=== PATIENT | male | born 1935 | race Caucasian/White ===

== ENCOUNTER 2017-12-03 23:16 | Observation (INO) | payer OTHER ==
[~2017-12-03] VITALS: Ht 182.9 cm; Wt 73.6 kg
[2017-12-03 23:53] LABS: HEMATOCRIT 31.2 % (38.0-50.0); HEMOGLOBIN 10.8 G/DL (12.5-16.6); MCH 33.6 PG (29.0-34.0); MCHC 34.6 G/DL (30.0-36.0); MCV 97.2 FL (86-99); PLATELET COUNT 180 K/uL (156-360); RBC DIS.WIDTH-CV 13.5 % (11.8-14.6); RBC DIS.WIDTH-SD 48.6 % (39-53); RED BLOOD COUNT 3.21 M/uL (4.00-5.50); WHITE BLOOD COUNT 8.3 K/uL (4.1-10.2)
[2017-12-04 00:02] LABS: ALBUMIN 3.5 g/dL (3.2-4.8)
[2017-12-04 00:03] LABS: CHLORIDE 108 mEq/L (99-109); POTASSIUM 3.8 mEq/L (3.7-5.4); SODIUM 137 mEq/L (136-147)
[2017-12-04 00:05] LABS: GLUCOSE 115 mg/dL (70-99); TOTAL PROTEIN 6.3 g/dL (6.4-8.3)
[2017-12-04 00:07] LABS: TOTAL BILIRUBIN 0.6 mg/dL (0.0-1.0)
[2017-12-04 00:08] LABS: ALKALINE PHOSPHATASE 45 IU/L (3-129); CREATININE 1.4 mg/dL (0.6-1.3)
[2017-12-04 00:09] LABS: GFR ESTIMATE (CALCULATED) 51 mL/min/ (58.99-99999); UREA NITROGEN (BUN) 44 mg/dL (9-23)
[2017-12-04 00:10] LABS: AST (GOT) 16 IU/L (2-34)
[2017-12-04 00:11] LABS: ALT (GPT) 9 IU/L (3-49)
[2017-12-04 00:12] LABS: LIPASE 13 U/L (1.0-51.0)
[2017-12-04 00:13] LABS: TROP-I INTERPRETATION NEGATIVE; TROPONIN-I < 0.01 ng/mL (0.0-0.30)
[2017-12-04 03:20] LABS: APPEARANCE SL.HAZY ((CLEAR)); BILIRUBIN NEGATIVE; BLOOD SMALL; COLOR YELLOW ((YELLOW)); GLUCOSE (STRIP) NEGATIVE; KETONES 20; LEUKOCYTES LARGE; NITRITE NEGATIVE; PROTEIN (STRIP) 30; SPECIFIC GRAVITY 1.019 (1.000-1.030); UROBILINOGEN 0.2 MG/DL (0.2-1.0)
[2017-12-04 03:24] LABS: BACTERIA RARE /HPF; EPITHELIAL CELLS NONE SEEN /HPF; HYALINE CASTS 0-5 /LPF; MUCUS TRACE /LPF; UCUL ADDED? YES; WHITE BLOOD CELLS TNTC /HPF (0-5)
[2017-12-04 03:49] VITALS: BP 133/75
[2017-12-04 07:46] VITALS: BP 124/66
[2017-12-04 11:07] LABS: CHLORIDE 106 MEQ/L (99-109); CREATININE 1.1 MG/DL (0.6-1.3); GFR ESTIMATE (CALCULATED) > 59 mL/min/ (58.99-99999); GLUCOSE 105 mg/dL (70-99); POTASSIUM 3.9 MEQ/L (3.7-5.4); SODIUM 139 MEQ/L (136-147); UREA NITROGEN (BUN) 32 mg/dL (9-23)
[2017-12-04] MEDS ORDERED: TYLENOL EXTRA500 MG PO (11:19)
[2017-12-04 19:34] VITALS: BP 134/90
[2017-12-04 23:55] VITALS: BP 119/73
[2017-12-05 07:07] VITALS: BP 127/73
[2017-12-05 12:11] VITALS: BP 128/78
[2017-12-05 15:46] VITALS: BP 135/82
[2017-12-05 19:36] VITALS: BP 125/73
[2017-12-06 04:33] VITALS: BP 109/78
[2017-12-06 07:14] VITALS: BP 142/72
[2017-12-06 11:55] VITALS: BP 151/90
[2017-12-06] MEDS ORDERED: CYCLOBENZAPRINE5 MG PO (13:23)
[2017-12-06] MEDS ORDERED: POLYETHYLENE GL17 GM PO (13:24)
[2017-12-06 16:18] VITALS: BP 157/67
[2017-12-06 19:10] VITALS: BP 132/69
[2017-12-06 23:11] VITALS: BP 136/70
[2017-12-07 07:23] VITALS: BP 127/80
[2017-12-07 11:45] VITALS: BP 163/70
[2017-12-07] MEDS ORDERED: ENDOCET 10-3251 EACH PO (14:05)
[2017-12-07] MEDS ORDERED: LIDOCARE1 EACH TD (14:05)
== END 2017-12-07 13:32 | disposition home or self-care (01) ==
LOC: EME 23:16 → EDOF 12-04 01:58 → 5WEST 12-04 01:58 → ENRESERV 12-04 01:59 → 5WEST 12-04 03:17 → ENPENDDIS 12-07 10:59 → 5WEST 12-07 13:32
PROVIDERS: Emergency Medicine; Internal Medicine
DX: S32.019A Unspecified fracture of first lumbar vertebra, initial encounter for closed fracture (principal); G89.29 Other chronic pain; M54.5 Low back pain; D68.9 Coagulation defect, unspecified; K59.00 Constipation, unspecified; D64.9 Anemia, unspecified; M79.89 Other specified soft tissue disorders; R26.2 Difficulty in walking, not elsewhere classified; M62.838 Other muscle spasm; M47.896 Other spondylosis, lumbar region; M48.061 Spinal stenosis, lumbar region without neurogenic claudication; Z82.49 Family history of ischemic heart disease and other diseases of the circulatory system
CPT/HCPCS: 71045; 72131; 74176; 78582; 80048; 80053; 81003; 83690; 84484; 85027; 85379; 87086; 93005; 93306; 93970; 97530 GO; 97530 GP; 99281; 99285; A9540; A9567; G0378; G8978 GP CM; G8979 GP CK; G8980 GP CL; G8987 GO CM; G8988 GO CJ; G8989 GO CL; J1644; J2060; J2270; J3010

== ENCOUNTER 2017-12-07 08:24 | Inpatient (IN) | payer OTHER ==
[~2017-12-07] VITALS: Ht 182.9 cm; Wt 70.0 kg
[~2017-12-07 08:24] MED LIST: CYCLOBENZAPRINE5 MG PO; POLYETHYLENE GL17 GM PO; TYLENOL EXTRA500 MG PO
[2017-12-07] MEDS ORDERED: ENDOCET 10-3251 EACH PO (14:05)
[2017-12-07] MEDS ORDERED: LIDOCARE1 EACH TD (14:05)
[2017-12-07 14:29] VITALS: BP 125/61
[2017-12-08 05:07] VITALS: BP 130/68
[2017-12-08 06:34] LABS: HEMATOCRIT 30.9 % (38.0-50.0); HEMOGLOBIN 10.5 G/DL (12.5-16.6); MCH 33.4 PG (29.0-34.0); MCV 98.4 FL (86-99); PLATELET COUNT 211 K/uL (156-360); RBC DIS.WIDTH-CV 13.5 % (11.8-14.6); RBC DIS.WIDTH-SD 48.6 % (39-53); RED BLOOD COUNT 3.14 M/uL (4.00-5.50); WHITE BLOOD COUNT 4.6 K/uL (4.1-10.2)
[2017-12-08 07:17] LABS: ALBUMIN 2.9 G/DL (3.2-4.8); ALKALINE PHOSPHATASE 30 IU/L (3-129); ALT (GPT) 10 IU/L (3-49); AST (GOT) 11 IU/L (2-34); CHLORIDE 101 MEQ/L (99-109); CREATININE 1.1 MG/DL (0.6-1.3); GFR ESTIMATE (CALCULATED) > 59 mL/min/ (58.99-99999); GLUCOSE 104 mg/dL (70-99); SODIUM 137 MEQ/L (136-147); TOTAL BILIRUBIN 0.4 MG/DL (0.0-1.0); TOTAL PROTEIN 5.5 G/DL (6.4-8.3); UREA NITROGEN (BUN) 23 mg/dL (9-23)
[2017-12-08 07:19] LABS: POTASSIUM 4.8 MEQ/L (3.7-5.4)
[2017-12-08 16:03] VITALS: BP 131/61
[2017-12-09 05:37] VITALS: BP 134/66
[2017-12-10 05:00] VITALS: BP 132/74
[2017-12-10 16:03] VITALS: BP 133/69
[2017-12-11 05:30] VITALS: BP 127/62
[2017-12-11 15:48] VITALS: BP 136/71
[2017-12-12 05:24] VITALS: BP 140/81
[2017-12-12 15:20] VITALS: BP 119/67
[2017-12-13 05:42] VITALS: BP 141/72
[2017-12-13 15:02] VITALS: BP 117/73
[2017-12-14 05:57] VITALS: BP 140/74
[2017-12-14 15:00] VITALS: BP 134/70
[2017-12-15 05:22] VITALS: BP 128/74
[2017-12-15 15:27] VITALS: BP 117/66
[2017-12-16 05:40] VITALS: BP 138/70
[2017-12-16 14:51] VITALS: BP 146/82
[2017-12-17 05:36] VITALS: BP 113/69
[2017-12-17 14:51] VITALS: BP 108/55
[2017-12-18 04:29] VITALS: BP 133/75
[2017-12-18 06:30] LABS: HEMATOCRIT 29.4 % (38.0-50.0); HEMOGLOBIN 9.8 G/DL (12.5-16.6); MCH 33.1 PG (29.0-34.0); MCHC 33.3 G/DL (30.0-36.0); MCV 99.3 FL (86-99); RBC DIS.WIDTH-CV 13.6 % (11.8-14.6); RBC DIS.WIDTH-SD 49.5 % (39-53); RED BLOOD COUNT 2.96 M/uL (4.00-5.50); WHITE BLOOD COUNT 4.9 K/uL (4.1-10.2)
[2017-12-18 06:39] LABS: PLATELET COUNT 349 K/uL (156-360)
[2017-12-18 07:09] LABS: ALBUMIN 2.9 G/DL (3.2-4.8); ALKALINE PHOSPHATASE 43 IU/L (3-129); ALT (GPT) 20 IU/L (3-49); AST (GOT) 11 IU/L (2-34); CHLORIDE 106 MEQ/L (99-109); CREATININE 1.1 MG/DL (0.6-1.3); GFR ESTIMATE (CALCULATED) > 59 mL/min/ (58.99-99999); GLUCOSE 86 mg/dL (70-99); POTASSIUM 4.3 MEQ/L (3.7-5.4); SODIUM 137 MEQ/L (136-147); TOTAL BILIRUBIN 0.4 MG/DL (0.0-1.0); TOTAL PROTEIN 5.2 G/DL (6.4-8.3); UREA NITROGEN (BUN) 29 mg/dL (9-23)
[2017-12-18 16:28] VITALS: BP 123/74
[2017-12-19 06:17] VITALS: BP 130/75
[2017-12-19] MEDS ORDERED: CYCLOBENZAPRINE5 MG PO (14:02)
[2017-12-19] MEDS ORDERED: HEPARIN SO5000 UNIT4 SC (14:03)
[2017-12-19] MEDS ORDERED: SENNA PLUS TAB1 EACH PO (14:04)
[2017-12-19] MEDS ORDERED: ALPRAZOLAM0.25 M2 PO (14:04)
[2017-12-19] MEDS ORDERED: DOCUSATE SODIU100 MG PO (14:04)
[2017-12-19] MEDS ORDERED: ENDOCET 5-3251 EACH PO (14:05)
== END 2017-12-19 15:25 | DRG 561 ==
LOC: 3WEST 08:24 → ENPENDDIS 12-20
PROVIDERS: Physical Medicine & Rehabilitation Pain Medicine
PROC: F07M0ZZ Range of Motion and Joint Mobility Treatment of Musculoskeletal System - Whole Body (ICD-10-PCS; principal; 2017-12-07)
DX: S32.019D Unspecified fracture of first lumbar vertebra, subsequent encounter for fracture with routine healing (principal); R26.9 Unspecified abnormalities of gait and mobility; G89.29 Other chronic pain; M47.816 Spondylosis without myelopathy or radiculopathy, lumbar region; M48.061 Spinal stenosis, lumbar region without neurogenic claudication; N18.9 Chronic kidney disease, unspecified; M85.80 Other specified disorders of bone density and structure, unspecified site; M62.838 Other muscle spasm; K59.00 Constipation, unspecified; B35.1 Tinea unguium; D64.9 Anemia, unspecified; K44.9 Diaphragmatic hernia without obstruction or gangrene; M25.511 Pain in right shoulder; F41.9 Anxiety disorder, unspecified
CPT/HCPCS: 73030; 80053; 85027; 97110 GO; 97530 GP; A6214; J1644; J2795